=== PATIENT | male | born 1985 | race Caucasian/White ===

== ENCOUNTER 2018-10-24 11:49 | Emergency (ER) | payer SELFPAY ==
--- OUTSIDE RECORDS SUMMARY | 2018-10-24 11:54 | XMS REPORT | Clinical Summary ---
Author Author [facility] Organization [facility] Address Unknown Phone Unavailable Care Team Providers Care Composing Machine Operator Name Role Phone PCP Unavailable Allergies No Known Allergies Medications Not on file Active Problems Not on file Encounters Care Team Description Date Type Specialty Michael Rodrigues MD Jaw pain (Primary Dx) 10/05/2018 Emergency Emergency Medicine after 10/23/2017 Social History Date Tobacco Use Types Packs/Day Years Used Never Assessed Sex Assigned at Date Recorded Not on file Industry Job Start Date Occupation Not on file Not on file Not on file Travel End Travel History Travel Start No recent travel history available. Last Filed Vital Signs Time Taken Vital Sign Reading 10/05/2018 7:16 PM HUMAN RESOURCES COMPLIANCE MANAGER Blood Pressure 125/87 10/05/2018 7:16 PM HUM[employer] COMPLIANCE MANAGER Pulse 79 10/05/2018 7:16 PM HUMAN RESOURCES COMPLIANCE MANAGER Temperature 36.9 C (98.5 F) 10/05/2018 7:16 PM HUMAN RESOURCES COMPLIANCE MANAGER Respiratory Rate 20 10/05/2018 7:16 PM HUMAN RESOURCES COMPLIANCE MANAGER Oxygen Saturation 99% - Inhaled Oxygen - Concentration - Weight - - Height - - Body Mass Index - Plan of Treatment Health Maintenance Due Date Last Done Comments IMM Influenza Seasonal 08/17/2018Aug to January (>/=19 yrs) Procedures Comments Procedure Name Priority Date/Time Associated Diagnosis CT MAXILLOFACIAL W/O STAT 10/05/2018 Jaw pain CONTRAST 1:39 PM HUMAN RESOURCES COMPLIANCE MANAGER after 10/23/2017 Results * CT MAXILLOFACIAL W/O CONTRAST (10/05/2018 1:39 PM HUMAN RESOURCES COMPLIANCE MANAGER) Impressions Performed At IMPRESSION: SMS 1. An acute hematoma in the left masseter is the result of an acute isolated, oblique, open fracture across the left mandibular angle that traverses the inferior alveolar canal. 2. No additional fractures or acute maxillofacial abnormalities. Signed By: Tyrese Espinoza MD, 10/05/2018 2:27 PM Narrative Performed At Exam; Maxillofacial CT without contrast SMS History: left jaw fracture Comparison studies: None. Technique: Axial scans were obtained through the face Coronal and sagittal reconstructions obtained from the axial data. IV Contrast: None Complications" None Radiation Dose: Total DLP: 480 mGy*cm FINDINGS: Soft tissues: An acute hematoma in the left masseter is notassociated with subcutaneous emphysema or hyperdense foreign bodies. Bones: An acute, isolated oblique, 2 mm medially displaced fracture across the left mandibular angle extends from the inferior mandibular surface to the alveolus posterior to the left third mandibular molar. The fracture traverses the inferior alveolar canal. Otherwise, no additional fractures, or bone abnormalities. Orbits: No abnormalities. Paranasal sinuses: Focal mucosal thickening along the floors of the maxillary sinuses and in several left ethmoid air cells. Otherwise, clear. Incidental findings: None. Procedure Note Interface, Rad/Mammog In - 10/05/2018 2:32 PM HUMAN RESOURCES COMPLIANCE MANAGER Exam; Maxillofacial CT without contrast History: left jaw fracture Comparison studies: None. Technique: Axial scans were obtained through the face Coronal and sagittal reconstructions obtained from the axial data. IV Contrast: None Complications" None Radiation Dose: Total DLP: 480 mGy*cm FINDINGS: Soft tissues: An acute hematoma in the left masseter is not associated with subcutaneous emphysema or hyperdense foreign bodies. Bones: An acute, isolated oblique, 2 mm medially displaced fracture across the left mandibular angle extends from the inferior mandibular surface to the alveolus posterior to the left third mandibular molar. The fracture traverses the inferior alveolar canal. Otherwise, no additional fractures, or bone abnormalities. Orbits: No abnormalities. Paranasal sinuses: Focal mucosal thickening along the floors of the maxillary sinuses and in several left ethmoid air cells. Otherwise, clear. Incidental findings: None. IMPRESSION IMPRESSION: 1. An acute hematoma in the left masseter is the result of an acute isolated, oblique, open fracture across the left mandibular angle that traverses the inferior alveolar canal. 2. No additional fractures or acute maxillofacial abnormalities. Signed By: Tyrese Espinoza MD, 10/05/2018 2:27 PM Performing Organization Address City/State/Zipcode Phone Number SMS after 10/23/2017 Insurance Type Payer Benefit Subscriber ID Effective Phone Address Plan / Dates Group [employer] SELF-PAY [employer] xxxxxxxxx 2018 [address] [place] [address]
--- OUTSIDE RECORDS SUMMARY | 2018-10-24 11:54 | XMS REPORT ---
Author Author [facility] Address Unknown Phone Unavailable Care Team Providers Care Overlock Collar Setter Name Role Phone Unavailable Unavailable Payers Payer Name Policy Type Policy Number Effective Date Expiration Date Problems This patient has no known problems. Allergies, Adverse Reactions, Alerts Allergy Name Allergy Type Status Severity Reaction(s) Onset Date Inactive Date Treating Clinician Comments No Known Allergies DA Active U 2018-09-28 00:00:00 Medications This patient has no known medications. Encounters Start Date/Time End Date/Time Encounter Type Admission Type Attending Clinicians [facility] Care Department Encounter ID 2018-10-05 20:22:39 2018-10-05 20:22:39 Emergency [facility] [id number] 2018-10-05 13:22:18 2018-10-05 13:22:18 Emergency [facility] [id number]
== END 2018-10-24 12:13 | disposition left against medical advice (07) ==
LOC: ER 11:49
DX: R68.84 Jaw pain (principal)